=== PATIENT | female | born 1955 | race Caucasian/White ===

== ENCOUNTER 2022-08-09 14:06 | Emergency (ER) | payer MEDICARE, OTHER, SELFPAY ==
--- NOTE | 2022-08-09 14:10 | W.ED.SOB ---
HPI - SOB/Dyspnea General: Chief Complaint: Abdominal Pain Stated Complaint: Pain below breast, SOB, and possible chest pain Time Seen by Provider: 08/09/22 14:10 History of Present Illness: HPI Narrative: Ms. Zamora is a 66-year-old lady with history of GERD and depression and surgical history of hysterectomy presented to the emergency department due to severe abdominal pain associated with nausea and vomiting. She reports onset of symptoms just after eating dinner last night, does endorse that dinner was heavier than typical with sausage. Developed subacute onset epigastric and upper abdominal pain associated with nausea and vomiting. Emesis is nonbilious and not bloody. Denies associated diarrhea or urinary symptoms. Since onset symptoms have persisted and are moderate to severe and have remained unrelenting. Patient has had only minimal improvement with gtyc-twj-[id number] medications and antacids. Denies frequent history of similar in the past. No other specific changes in health, exacerbating, or alleviating factors identified. Onset (ago): hour(s) Context: other (After eating) Timing: constant Severity: severe Exacerbating factors: nothing Relieving factors: nothing Associated symptoms: Reports abdominal pain, chest pain, nausea and vomiting Review of Systems General: Reports: 10 or more systems reviewed and unremarkable except in HPI and below Card: Reports: chest pain GI: Reports: abdominal pain, nausea and vomiting PFSH ED PFSH: Medical History Depression Surgical History History of hysterectomy Social History Smoking and tobacco status: never smoked Physical Exam Const: COMMON NORMALS: alert GENERAL APPEARANCE: cooperative, well developed and in distress (Moderate due to pain) HENMT: COMMON NORMALS: normocephalic and atraumatic HEAD & SCALP: normocephalic and atraumatic Eye: COMMON NORMALS: conjunctivae normal CONJUNCTIVA: Yes conjunctivae normal SCLERA: sclerae normal Neck/C-Spine: COMMON NORMALS: supple GENERAL: Yes trachea midline Resp: COMMON NORMALS: normal respiratory effort EFFORT & INSPECTION: Yes able to speak in complete sentences Cardio: COMMON NORMALS: regular rate and regular rhythm RATE: regular rate RHYTHM: regular rhythm GI: COMMON NORMALS: Soft to palpation PALPATION: Yes Soft to palpation, Yes Tenderness to palpation present (GI), Yes Guarding due to palpation present (GI) in the RUQ and No Rigid due to palpation OTHER: Positive Oglesby Extremity: GENERAL: Yes normal exam except as noted and No edema Neuro: COMMON NORMALS: moves all extremities SENSORIUM/ORIENTATION: Yes alert and No Orientation impaired Psych: COMMON NORMALS: mental status grossly normal and Normal thought process present THOUGHT PROCESS: Normal thought process present Course Vital Signs: Vital signs: Vital Signs Temperature 97.7 F 08/09/22 18:28 Pulse Rate 74 08/09/22 18:28 Respiratory Rate 18 08/09/22 18:28 Blood Pressure 168/102 08/09/22 18:28 Pulse Oximetry 98 08/09/22 17:00 Oxygen Delivery Me thod 08/09/22 14:20 MDM - SOB/Dyspnea Medical Decision Making 66-year-old lady presenting with abdominal symptoms. Exam as above, uncomfortable due to pain. EKG normal sinus rhythm, no STEMI. Mild leukocytosis, normal hemoglobin. Metabolic panel with evidence of dehydration. No evidence of urinary tract affection. Chest x-ray negative for acute pathology plan symptoms. Gallbladder ultrasound with cholelithiasis., CT without other additional acute pathology to explain symptoms. Patient feels significantly proved with fluids, analgesia, antiemetic. Most likely etiology of patient's symptoms is cholelithiasis and biliary colic without evidence of cholecystitis. Satisfactory for outpatient general surgery management with strict return precautions. The results of ED evaluation were discussed with the patient including prescriptions and/or symptomatic cares (if applicable) including appropriate and responsible use, followup plan, and return precautions. The patient verbalized understanding and felt safe for discharge. Medical Records I reviewed the patient's medical records. Lab Data I reviewed the patient's lab results. 08/09/22 14:50 08/09/22 14:50 Labs/Radiology: Radiology Impressions Chest X-Ray 08/09/22 14:37 IMPRESSION: No obvious acute consolidation. Probable mild emphysematous change. Suboptimal lung base assessment. Followup including lateral view may be obtained if clinically indicated. Gallbladder Ultrasound 08/09/22 14:43 IMPRESSION: 1. Coarse hepatic echotexture likely due to fatty infiltration. 2. Fluid distended gallbladder with shadowing calculi. No gallbladder wall thickening or pericholecystic fluid. A few calculi near the neck of the gallbladder. 3. Focal fatty sparing near the gallbladder fossa. 4. No hydronephrosis in RIGHT kidney. 5. Normal common bile duct. Abdomen/Pelvis CT 08/09/22 15:53 IMPRESSION: 1. Mild hepatic steatosis and hepatic cystic lesion as described. No cirrhosis or suspicious mass. 2. Cholelithiasis and distended gallbladder lumen. 3. Low-moderate stool burden and colonic diverticulosis. 4. Soft tissue and other nonacute findings as described. Laboratory Results WBC 11.0 10^3/uL (4.0-10.0) H 08/09/22 14:50 RBC 5.49 10^6/uL (4.1-5.3) H 08/09/22 14:50 Hgb 15.2 g/dL (11.5-15.3) 08/09/22 14:50 Hct 45.1 % (37.0-47.0) 08/09/22 14:50 MCV 82.1 fl (81-99) 08/09/22 14:50 MCH 27.7 pg (28.0-34.0) L 08/09/22 14:50 MCHC 33.7 g/dL (30.0-36.0) 08/09/22 14:50 RDW 12.8 % (12.1-15.1) 08/09/22 14:50 Plt Count 380 10^3/cmm (130-400) 08/09/22 14:50 MPV 10.8 fL (7.4-10.4) H 08/09/22 14:50 Neut % (Auto) 79.9 % 08/09/22 14:50 Lymph % (Auto) 15.2 % 08/09/22 14:50 [place] % (Auto) 3.8 % 08/09/22 14:50 Eos % (Auto) 0.2 % 08/09/22 14:50 Baso % (Auto) 0.5 % 08/09/22 14:50 Neut # (Auto) 8.80 10^3/uL (1.8-7.7) H 08/09/22 14:50 Lymph # (Auto) 1.7 10^3/uL (0.8-4.8) 08/09/22 14:50 [place] # (Auto) 0.4 10^3/uL (0.2-0.9) 08/09/22 14:50 Eos # (Auto) 0.0 10^3/uL (0.0-0.8) 08/09/22 14:50 Baso # (Auto) 0.1 10^3/uL (0.0-0.1) 08/09/22 14:50 Nucleated RBC % (auto) 0 % 08/09/22 14:50 Nucleated RBCs # 0.0 /100WBC 08/09/22 14:50 Sodium 136 mmol/L (136-145) 08/09/22 14:50 Potassium 3.7 mmol/L (3.5-5.1) 08/09/22 14:50 Chloride 98 mmol/L (98-107) 08/09/22 14:50 Carbon Dioxide 20 mmol/L (22-29) L 08/09/22 14:50 Anion Gap 21.7 (5-19) H 08/09/22 14:50 BUN 10 mg/dL (8-23) 08/09/22 14:50 Creatinine 0.8 mg/dL (0.5-0.9) 08/09/22 14:50 GFR Calculation 71.3 mL/min (90-130) L 08/09/22 14:50 Glucose 129 mg/dL (65-115) H 08/09/22 14:50 Calculated Osmolality 283 mOsm/kg (285-295) L 08/09/22 14:50 Lactate 3.9 mmol/L (0.5-2.2) H 08/09/22 14:50 Calcium 7.2 mg/dL (8.5-10.5) L 08/09/22 14:50 Total Bilirubin 0.5 mg/dL (0.15-1.2) 08/09/22 14:50 AST 21 U/L (0-32) 08/09/22 14:50 ALT 17 U/L (0-33) 08/09/22 14:50 Alkaline Phosphatase 80 U/L (35-105) 08/09/22 14:50 Troponin T Baseline 7 ng/L (0-10) 08/09/22 14:50 Troponin T 120 Minute 7.62 ng/L (0-10) 08/09/22 17:15 Delta Troponin T 0.62 ABS# (0-10) 08/09/22 17:15 Total Protein 8.4 g/dL (6.6-8.7) 08/09/22 14:50 Albumin 5.0 g/dL (3.5-5.2) 08/09/22 14:50 Globulin 3.4 g/dL (1.3-4.6) 08/09/22 14:50 Lipase 31 U/L (13-60) 08/09/22 14:50 Urine Color Yellow (Yellow) 08/09/22 16:29 Urine Appearance Clear (CLEAR) 08/09/22 16:29 Urine pH 9 (5-7) H 08/09/22 16:29 Ur Specific [place] 1.015 (1.005-1.030) 08/09/22 16:29 Urine Protein Neg (Negative) 08/09/22 16:29 Urine Glucose (UA) Norm (Normal) 08/09/22 16:29 Urine Ketones 2+ (Negative) H 08/09/22 16:29 Urine Blood Neg (Negative) 08/09/22 16:29 Urine Nitrate Negative (Negative) 08/09/22 16:29 Urine Bilirubin Neg (Negative) 08/09/22 16:29 Prot Sulfosalicylic Acd Negative (Negative) 08/09/22 16:29 Urine Urobilinogen Neg mg/dL (Negative) 08/09/22 16:29 Ur Leukocyte Esterase Negative (Negative) 08/09/22 16:29 Discharge Plan Discharge Patient Disposition: Home Clinical Impression: Biliary colic, Abdominal pain, Gallstones, Nausea & vomiting, Dehydration Condition: Stable Prescriptions: New ondansetron 4 mg tablet,disintegrating 4 mg PO Q8H PRN (Reason: nausea and vomiting) Qty: 30 0RF oxycodone 5 mg tablet 5 mg PO Q4H PRN (Reason: pain) Qty: 30 0RF amoxicillin-pot clavulanate 875-125 mg tablet 1 tab PO BID Qty: 20 0RF No Action Vitamin C 1,000 mg Tablet 1,000 mg PO BID venlafaxine 75 mg capsule,extended release 24hr 75 mg PO DAILY zinc acetate 50 mg (zinc) Capsule 50 mg PO DAILY Calcium 500 500 mg calcium (1,250 mg) Tablet 500 mg PO DAILY hydroxyzine pamoate 25 mg capsule 25 mg PO BID PRN (Reason: Anxiety) Vitamin D3 25 mcg (1,000 unit) Capsule 25 mcg PO DAILY magnesium 200 mg Tablet 200 mg PO DAILY Discharge Orders: Discharge ED (Routine); Ordered 08/09/22 Ordered By: Kyree Dang Referrals: Micheline Smith MD [Primary Care Provider] - Discharge Diet: As Directed Discharge Activity: Increase activity as tolerated Patient Instructions: Dehydration (ED), Gallstones (ED), Abdominal Pain (ED), Opioid Safety Activity Restrictions/Additional Instructions: Thank you for visiting the emergency department. You were seen and evaluated for abdominal pain with nausea and vomiting. The most likely cause of your symptoms is related to gallstones and biliary colic. As discussed I will treat this with antinausea medication, antibiotics, and opioid pain medications. You may use [id number] medications such as acetaminophen and ibuprofen for pain however please do not exceed the daily recommended dosage as listed on the packaging and please keep in mind that many namebrand medications contain the same active ingredients. Please avoid these medications if previously instructed to do so by another physician due to other underlying medical condition. I will message case management for follow-up with general surgery. Please also follow-up with your primary care provider. Please return to the emergency department for fevers, uncontrolled symptoms despite treatment, or anything else that you are concerned about and feel needs emergency department evaluation. Coding Level of Care Code ED Cloth Shrinking Machine Operator Helper for Morgan Ohara Exam Comprehensive
[2022-08-09 14:20] VITALS: BP 160/78; PULSE 86; RESP 18; TEMP 36.5; O2SAT 100; BMI 31.6
--- NOTE | 2022-08-09 14:37 | XRR_ITS ---
PROCEDURE INFORMATION: Exam: XR Chest Exam date and time: 08/09/2022 2:41 PM Age: 66 years old Clinical indication: Pain; Angina pectoris; Additional info: Lower cp TECHNIQUE: Imaging protocol: Radiologic exam of the chest. Views: 1 view. COMPARISON: CT abdomen pelvis wo/w [id number] 10/15/2015 10:36 AM FINDINGS: Lungs: The lung bases are suboptimally assessed due to technique however the upper lungs are clear of focal consolidation. Probable mild emphysematous change. Pleural spaces: Unremarkable. No pleural effusion. No pneumothorax. Heart/Mediastinum: Cardiac silhouette appears normal in size. No obvious vascular congestion. Bones/joints: No acute osseous findings. Other findings: Single view was submitted. XR/XR chest 1V portable [id number] IMPRESSION: No obvious acute consolidation. Probable mild emphysematous change. Suboptimal lung base assessment. Followup including lateral view may be obtained if clinically indicated.
--- NOTE | 2022-08-09 14:43 | US_ITS ---
WS: [id number] ULTRASOUND ABDOMEN LIMITED CLINICAL INFORMATION: RUQ pain, n/v COMPARISON: None. FINDINGS: Liver Size: Normal. Craniocaudal length: 14.7 cm. Echogenicity: Normal. Surface nodularity: None. Mass (size and location): None. Bile ducts Intrahepatic ducts: Normal. Common bile duct diameter: 0.4 cm. Gallbladder Mild fluid distention of the gallbladder with multiple shadowing calculi. No gallbladder wall thicken ing or pericholecystic fluid. Gallstones: Present. focal fatty sparing in the gallbladder fossa. Gallbladder sludge: None. Gallbladder wall thickening: None. Pericholecystic fluid: None. Sonographic Oglesby sign: Absent. Pancreas Normal as visualized. Right kidney: Normal. Hydronephrosis: None. Size: 9.8 cm x 5.1 cm x 4.2 cm. Abdominal aorta and IVC Visualized portions are normal. Ascites: None. US/US gall bladder [id number] IMPRESSION: 1. Coarse hepatic echotexture likely due to fatty infiltration. 2. Fluid distended gallbladder with shadowing calculi. No gallbladder wall thi ckening or pericholecystic fluid. A few calculi near the neck of the gallbladde r. 3. Focal fatty sparing near the gallbladder fossa. 4. No hydronephrosis in RIGHT kidney. 5. Normal common bile duct.
--- NOTE | 2022-08-09 14:50 | ECG_ITS ---
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 Measurements Intervals [place] Rate: 80 P: 75 NV: 171 QRS: 66 QRSD: 101 T: 72 QT: 415 QTc: 482 Interpretive Statements SINUS RHYTHM WITH SINUS ARRHYTHMIA No previous ECG available for comparison Electronically Signed On 08-09-2022 18:14:02 TEST RACK OPERATOR by Lisa Metcalf M.D. [id number]
[2022-08-09] MEDS: ondansetron 2 mg/ML SDV 2 mL 4 MG IVP (15:04)
[2022-08-09 15:21] LABS: Basophils # 0.1 10^3/uL (0.0-0.1); Basophils % 0.5 %; Eosinophils % 0.2 %; Hematocrit 45.1 % (37.0-47.0); Hemoglobin 15.2 g/dL (11.5-15.3); Lymphocytes # 1.7 10^3/uL (0.8-4.8); Lymphocytes % 15.2 %; Mean Corpuscular HGB Conc 33.7 g/dL (30.0-36.0); Mean Corpuscular Hemoglobin 27.7 pg (28.0-34.0); Mean Corpuscular Volume 82.1 fl (81-99); Mean Platelet Volume 10.8 fL (7.4-10.4); Monocytes # 0.4 10^3/uL (0.2-0.9); Monocytes % 3.8 %; Neutrophils % 79.9 %; Nucleated Red Blood Cells % 0 %; Platelet Count 380 10^3/cmm (130-400); Red Blood Count 5.49 10^6/uL (4.1-5.3); Red Cell Distribution Width 12.8 % (12.1-15.1)
[2022-08-09 15:41] LABS: Lactate (Lactic Acid level) 3.9 mmol/L (0.5-2.2); Troponin(5th) Baseline 7 ng/L (0-10)
[2022-08-09 15:42] LABS: Alanine Aminotransferase 17 U/L (0-33); Alkaline Phosphatase 80 U/L (35-105); Aspartate Amino Transferase 21 U/L (0-32); Blood Urea Nitrogen 10 mg/dL (8-23); Calcium 7.2 mg/dL (8.5-10.5); Carbon Dioxide 20 mmol/L (22-29); Chloride 98 mmol/L (98-107); Globulin 3.4 g/dL (1.3-4.6); Glomerular Filtration Rate 71.3 mL/min (90-130); Glucose 129 mg/dL (65-115); Lipase 31 U/L (13-60); Osmolality Calculated 283 mOsm/kg (285-295); Sodium 136 mmol/L (136-145); Total Bilirubin 0.5 mg/dL (0.15-1.2); Total Protein 8.4 g/dL (6.6-8.7)
[2022-08-09 15:45] LABS: Anion Gap 21.7 (5-19); Potassium 3.7 mmol/L (3.5-5.1)
--- NOTE | 2022-08-09 15:53 | CTR_ITS ---
PROCEDURE INFORMATION: Exam: CT Abdomen And Pelvis With Contrast Exam date and time: 08/09/2022 4:27 PM Age: 66 years old Clinical indication: Abdominal pain; Epigastric; Additional info: Epigastric abd pain TECHNIQUE: Imaging protocol: Computed tomography of the abdomen and pelvis with contrast. Radiation optimization: All CT scans at this facility use at least one of these dose optimization techniques: automated exposure control; mA and/or kV adjustment per patient size (includes targeted exams where dose is matched to clinical indication); or iterative reconstruction. Contrast material: OMNIPAQUE 350; Contrast volume: 95 ml; Contrast route: INTRAVENOUS (IV); COMPARISON: 1. CT abdomen pelvis wo/w [id number] 10/15/2015 10:36 AM 2. US gall bladder [id number] 08/09/2022 2:57 PM RADIATION DOSE METRICS: Total DLP (mGy-cm): 731.62 FINDINGS: Diaphragm: Small hiatal hernia. Liver: Slightly elongated right hepatic lobe with no significant overall hepatomegaly. Mild hepatic steatosis. Again seen is well-defined cystic lesion at the lateral aspect of left hepatic lobe, measuring 3.2 by 2.5 cm, versus 2.6 by 2.3 cm on the previous exam. No obvious nodular solid enhancing elements. No cirrhosis or other suspicious lesion. Gallbladder and bile ducts: Gallbladder is somewhat distended which may be related to prolonged fasting versus cholestasis. Multiple faintly visualized gallbladder calculi are noted measuring up to 2.6 cm. No obvious imaging signs of acute cholecystitis or bile duct dilatation. No obvious imaging signs of acute cholecystitis or bile duct dilatation. Pancreas: Normal. No ductal dilation. Spleen: Normal. No splenomegaly. Adrenal glands: Normal. No mass. Kidneys and ureters: No obstructing calculus. No hydronephrosis. Stomach and bowel: Low-moderate colonic stool burden with colonic diverticulosis. No acute diverticulitis or other acute bowel findings. Appendix: Normal appendix. Intraperitoneal space: Unremarkable. No free air. No significant fluid collection. Vasculature: No abdominal aortic aneurysm. Lymph nodes: No enlarged lymph nodes. Urinary bladder: Unremarkable as visualized. Reproductive: Absent uterus. Bones/joints: Osteopenia. Soft tissues: Lipomatous changes replacing multiple left adductor muscles on the right, unchanged. CT/CT abdomen pelvis w con* [id number] IMPRESSION: 1. Mild hepatic steatosis and hepatic cystic lesion as described. No cirrhosis or suspicious mass. 2. Cholelithiasis and distended gallbladder lumen. 3. Low-moderate stool burden and colonic diverticulosis. 4. Soft tissue and other nonacute findings as described.
[2022-08-09] MEDS: fentaNYL 50 mcg/mL INJ 2mL IVP ×2 (15:57→18:18)
[2022-08-09] MEDS: sodium chloride 0.9% 1,000 ML 999 ML IV (16:04)
--- NOTE | 2022-08-09 16:38 | ECG_ITS ---
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 Measurements Intervals [place] Rate: 80 P: 64 OR: 187 QRS: 55 QRSD: 96 T: 69 QT: 415 QTc: 479 Interpretive Statements SINUS RHYTHM Compared to ECG 08/09/2022 14:50:16 Sinus arrhythmia no longer present Electronically Signed On 08-09-2022 18:28:04 STOCK PARTS INSPECTOR by Lisa Metcalf M.D. [id number]
[2022-08-09 16:43] LABS: Add Urine Microscopic? NO; Charge for UA Resulting for Rev
[2022-08-09] MEDS: iohexol 350 mg/mL 500 mL Btl (per mL) IV (16:47)
[2022-08-09 16:54] LABS: Bilirubin Urine Neg (Negative); Blood Urine Neg (Negative); Glucose Urine UA Norm (Normal); Nitrate Urine Negative (Negative); Protein Urine Neg (Negative); Specific Gravity, Urine 1.015 (1.005-1.030); Urine Appearance Clear (CLEAR); Urine Color Yellow (Yellow); pH Urine 9 (5-7)
[2022-08-09 16:55] LABS: Ketones Urine 2+ (Negative); Leukocyte Esterase Urine Negative (Negative); Sulfosalicylic Acid Urine Negative (Negative); Urobilinogen Urine Neg (Negative)
[2022-08-09 17:00] VITALS: BP 168/102; PULSE 74; O2SAT 98
[2022-08-09 17:46] LABS: Troponin 5 2HR 7.62 ng/L (0-10)
[2022-08-09 18:21] LABS: Troponin 5 2HR Delta 0.62 ABS# (0-10)
[2022-08-09 18:28] VITALS: BP 168/102; PULSE 74; RESP 18; TEMP 36.5
--- NOTE | 2022-08-10 10:04 | DCPLANNER ---
Addendum entered by Kerrie Chin 08/15/22 12:38: manager of business received the following message from general surgery regarding follow up appointment: Number not in service On 08/14/22 @ 08:07 Radha Richard Wrote To Outplacement Consultant Front Off patient's numbers in chart are not working tried both. will try again later this morning Original Note: manager of business had message to schedule a follow up appointment for patient with general surgery. manager of business sent patients information to the front office staff at general surgery. Patients information will be printed and reviewed. Clinic will call patient with appointment information.
--- NOTE | 2022-08-10 10:27 | PC.NURSE ---
wasted 50mcg fentanyl with Shady Polanco RN
== END 2022-08-09 18:28 | disposition home or self-care (01) ==
PROVIDERS: Emergency Provider Emergency Medicine; PCP Family Medicine
DX: K80.70 Calculus of gallbladder and bile duct without cholecystitis without obstruction (principal); E86.0 Dehydration
CPT/HCPCS: 71045; 74177; 76705; 80053; 81003; 83605; 83690; 84484; 85025; 93005; 96361; 96374; 96375; 99285; J2405; J3010; J7030; Q9967

== ENCOUNTER → 2022-10-24 11:35 | Outpatient (BNVA) | payer MEDICARE, OTHER, SELFPAY | PROVIDERS: PCP Family Medicine; Visit Provider Surgery | DX: K80.20 Calculus of gallbladder without cholecystitis without obstruction (principal) | CPT/HCPCS: 99203 ==

== ENCOUNTER 2022-11-23 08:06 | Day surgery (SDC) | payer MEDICARE, OTHER, SELFPAY ==
[2022-11-22 12:16] VITALS: BMI 29.1
[2022-11-23] VITALS (16 sets, daily range): BP systolic 124–162; BP diastolic 69–99; PULSE 67–81; RESP 14–20; TEMP 36.1–36.6; O2SAT 92–100
[2022-11-23] MEDS: sodium chloride 0.9% 1,000 ML 30 ML IV (08:35)
--- NOTE | 2022-11-23 09:11 | W.PM.OPSUD ---
Surgery/Procedure H&P Update DATE OF PROCEDURE: November 23, 2022 DATE H&P PERFORMED: 10/24/22 H&P UPDATE INFORMATION: I have reviewed H&P completed within last 30 days, I have examined patient prior to procedure and No changes to prior documentation PREOP DIAGNOSIS: Symptomatic cholelithiasis PLANNED PROCEDURE: Operation Date: 11/23/22 09:35 Proposed [place] tony [id number] K80.20(Not Applicable) - Cornel Pittman DO
[2022-11-23] MEDS: ceFAZolin 2,000 MG in sodium chloride 0.9% (plus) 50 ML 100 MG IV (11:22)
[2022-11-23] MEDS: lidocaine-epi 2% 20 mL INJ INJECTION (11:40)
--- NOTE | 2022-11-23 12:32 | P.OP_ITS ---
Operative Report Date of procedure: November 23, 2022 Pre-op diagnosis: Preop Diagnosis Symptomatic cholelithiasis Post-op diagnosis: same Procedure done: Laparoscopic cholecystectomy Implants: Surgicel x2 Specimens removed/disposition: Gallbladder Surgeon: Dr. Cornel Pittman Anesthesia: General Estimated blood loss (mL): 40 Complications: None apparent Brief History: This very pleasant 66-year-old female who was found to have symptomatic cholelithiasis. Laparoscopic cholecystectomy is indicated. The risk and benefits were explained and documented. Procedure: Patient was wheeled into the operative room and placed on the OR table in a supine position. Abdomen was inspected prepped and draped in usual sterile fashion. Time-out was performed and all present were in agreement. A 15 blade scalp was used to make a stab incision in the left upper quadrant and intra- abdominal insufflation was achieved using a Veress needle. After localizing the tissue incisions were made and a 5 millimeter trocar was placed into the umbilicus as well as 2 in the right upper quadrant. A 12 millimeter trocar was placed in the epigastrium. Gallbladder was grasped and elevated. The triangle of Calot was carefully dissected using blunt dissection and electrocautery until the triangle of Calot clearly identified. The cystic duct was clipped proximal ly and double clipped distally. The duct was then ligated proximally. The cystic artery was doubly clipped and ligated. The gallbladder was then removed from the liver bed using electrocautery. The gallbladder was slightly intrahepatic. The gallbladder was removed from the abdomen using an Endo-Catch bag through the epigastric incision. The liver bed was inspected and electrocautery was used on the liver bed. There was still bleeding and therefore Surgicel x2 was placed over the liver bed. This held in place for some time and then slowly removed and cautery was performed again on the liver bed. Surgicel was replaced. Hemostasis was noted. The abdomen was irrigated and suctioned. All ports removed. Skin was washed and dried. Incisions were closed with 3-0 Vicryl and 4-O Monocryl in a subcuticular interrupted fashion. Skin glue was applied. Patient tolerated the procedure well.
--- NOTE | 2022-11-23 12:43 | XR_ITS ---
WS: [id number] Exam: XR abdomen 1V* [id number] Date/Time of Exam: 11/23/2022 1:06 PM Reason For Exam: surgical counts No bowel obstruction or free air. No radiopaque foreign bodies are seen in the abdomen or visualized pelvis. Signs of prior cholecystectomy. XR/XR abdomen 1V* [id number] IMPRESSION: 1. No acute abdominal finding. 2. No radiopaque foreign bodies identified in the abdomen or visualized pelvis.
--- NOTE | 2022-11-23 13:04 | SUR.OPER ---
1304 Dr. Pittman in 0R 3 to review abdominal XRAY, he confirmed that there is no scratch pad in abdomen.
[2022-11-23] MEDS: fentaNYL 50 mcg/mL INJ 2mL IVP ×2 (13:20→13:30)
[2022-11-23] MEDS: HYDROmorphone 1 mg/mL INJ 1 mL 0.5 MG IVP (13:37)
--- NOTE | 2022-11-23 14:10 | ANES.PREANE2 ---
Pre-Anesthetic Assessment Height/Weight: Height 1.65 m Weight 79.379 kg Temp Pulse Resp BP Pulse Ox O2 Del Method O2 Flow Rate 97.8 F 75 20 H 124/99 93 94 11/23/22 14:01 11/23/22 14:01 11/23/22 14:01 11/23/22 14:01 11/23/22 14:01 11/23/22 14:01 11/23/22 13:53 Preop Diagnosis: Symptomatic cholelithiasis Operation Date: 11/23/22 09:35 Proposed Procedures p ap tony 92440 K80.20(Not Applicable) - Cornel Pittman DO Familial anesthetic complications: none Was Beta Kristen taken within 24 hours: N/A Was Clonidine taken within 24 hours: N/A Last intake: Intake Last Liquid Date 11/22/22 Last Liquid Time 21:30 Last Solid Date 11/22/22 Last Solid Time 21:30 Social No alcohol and No tobacco Exam alert, oriented x 3, clear to auscultation bilaterally and regular rate & rhythm Airway Submandibular: within normal limits Cervical ROM: within normal limits Mallampati: Class II Dentition: full Neuropsych Depression Anesthetic Plan ASA status: 2 Anesthesia: General Medications/Allergies Home Medications Medication Instructions Recorded Confirmed Last Taken Type venlafaxine 75 mg capsule,extended 75 mg PO DAILY 08/09/22 11/22/22 11/22/22 History release 24 hr Allergies Allergy/AdvReac Type Severity Reaction Status Date / Time No Known Allergies Allergy Verified 11/23/22 08:18 Current Medications Generic Name Dose Route Start Last Admin Trade Name Freq PRN Reason Stop Dose Admin Hydromorphone HCl 0.5 mg 11/23/22 09:08 11/23/22 13:37 Hydromorphone 1 Mg/Ml Inj 1 Ml IVP 11/24/22 09:08 0.5 mg Q10M PRN Administration Pain level 6-10 PACU Phase I Sodium Chloride 1,000 mls @ 30 mls/hr 11/23/22 08:15 11/23/22 08:35 Sodium Chloride 0.9% IV 11/24/22 08:14 30 mls/hr .Q24H DARON Administration PFSH Anesthesia Medical History Depression History of lipoma Surgical History History of D&C History of hysterectomy Social History Smoking and tobacco status: never smoked Data Anesthesia Cardiac Studies: No Data to Display
--- NOTE | 2022-11-23 15:59 | ANE.PACU2 ---
Inpatient post-anesthesia follow up: Airway intact: Yes Vital signs: Temperature 97.8 F Pulse Rate 73 Respiratory Rate 20 Blood Pressure 128/89 Pulse Oximetry 92 Oxygen Delivery Me thod Room Air Oxygen Flow Rate 94 Fraction of Inspir ed Oxygen Hydration adequate: Yes Nausea and vomiting: No Pain level: 3 Mental status: Baseline
== END 2022-11-23 14:40 | disposition home or self-care (01) ==
PROVIDERS: PCP Family Medicine; Visit Provider Surgery
PROC: 0FT44ZZ Resection of Gallbladder, Percutaneous Endoscopic Approach (ICD-10-PCS; CPT 47562; principal; 2022-11-23 09:15)
DX: K80.10 Calculus of gallbladder with chronic cholecystitis without obstruction (principal)
CPT/HCPCS: 47562; 74018; 88304; J0690; J1100; J1170; J2405; J2704; J2710; J3010; J3490; J7030

== ENCOUNTER → 2022-12-06 15:27 | Outpatient (BNVA) | payer MEDICARE, OTHER, SELFPAY | PROVIDERS: PCP Family Medicine; Visit Provider Surgery | DX: Z98.890 Other specified postprocedural states (principal); Z90.49 Acquired absence of other specified parts of digestive tract | CPT/HCPCS: 99024 ==